=== PATIENT | female | born 1945 | race Two or more races ===

== ENCOUNTER 2019-01-06 06:26 | Day surgery (SDC) | payer BC ==
[2019-01-06] MEDS: TROPICAMIDE 1% 15 ML OPH OPER (07:31)
[2019-01-06] MEDS: DICLOFENAC 0.1% 2.5 ML OPH OPER (07:31)
[2019-01-06] MEDS: MOXIFLOXACIN 0.5% 3 ML OPH OPER (07:32)
[2019-01-06] MEDS: CYCLOPENTOLATE/PHENYLEPH 2 ML OPH OPER (07:32)
[2019-01-06] MEDS: SOD CHLORIDE 0.9% 1,000 ML IV (07:33)
[2019-01-06] MEDS ORDERED: PROPOFOL 20 ML (08:39)
[2019-01-06] MEDS ORDERED: MEPERIDINE 25 MG INJ IV (09:00)
[2019-01-06] MEDS ORDERED: ONDANSETRON 4 MG INJ IV (09:00)
[2019-01-06] MEDS ORDERED: DIPHENHYDRAMINE 50 MG INJ IV (09:00)
[2019-01-06] MEDS ORDERED: MIDAZOLAM 1 MG/ML 2 ML INJ IV (09:00)
[2019-01-06] MEDS ORDERED: OXYCODONE/ACETAMINOPHEN (5/325) TAB PO ×2 (09:00)
[2019-01-06] MEDS ORDERED: hydrALAzine 20 MG INJ IV (09:00)
[2019-01-06] MEDS ORDERED: FENTAnyl 50 MCG/ML VIAL IV ×3 (09:00)
[2019-01-06] MEDS ORDERED: LABETALOL HCL 20MG INJ IV (09:00)
[2019-01-06] MEDS ORDERED: EPHEDrine SULFATE 50 MG/5 ML SYG IV (09:00)
[2019-01-06] MEDS ORDERED: METOCLOPRAMIDE 10 MG INJ IV (09:00)
[2019-01-06] MEDS ORDERED: MOXIFLOXACIN 0.5% 3 ML OPH (09:11)
[2019-01-06] MEDS: CARBACHOL 0.01% 1.5 ML OPH INJ (09:57)
[2019-01-06] MEDS: DEXAMETHASONE 4 MG/ML 1 ML INJ (09:58)
[2019-01-06] MEDS: LIDOCAINE 4% (MPF) 5 ML INJ ×2 (09:58)
[2019-01-06] MEDS: NA HYALURONATE/CHONDROITIN 0.5 ML SYG (09:58)
[2019-01-06] MEDS: TETRACAINE 0.5% 4 ML OPH (09:59)
== END 2019-01-06 10:36 | disposition home or self-care (01) ==
LOC: SDS 06:26
DX: H26.8 Other specified cataract (principal); I10 Essential (primary) hypertension; E11.9 Type 2 diabetes mellitus without complications; E78.5 Hyperlipidemia, unspecified
CPT/HCPCS: 66984; 82962